=== PATIENT | female | born 1990 | race Caucasian/White ===

== ENCOUNTER → 2021-01-29 17:38 | Outpatient (BNVA) | payer SELFPAY | PROVIDERS: Visit Provider Nurse Practitioner Family | DX: R42 Dizziness and giddiness (principal); Z13.6 Encounter for screening for cardiovascular disorders; Z68.35 Body mass index [BMI] 35.0-35.9, adult | CPT/HCPCS: 80053; 80061; 81000; 82607; 83735; 84443; 85025 ==

== ENCOUNTER → 2021-02-20 10:15 | Outpatient (BNVA) | payer SELFPAY | PROVIDERS: Visit Provider Nurse Practitioner Family | DX: E53.8 Deficiency of other specified B group vitamins (principal); R42 Dizziness and giddiness | CPT/HCPCS: 80053; 82607; 82746; 85025 ==

== ENCOUNTER 2021-03-26 16:56 | Emergency (ER) | payer SELFPAY ==
[2021-03-26 17:15] VITALS: BP 135/90; PULSE 73; RESP 18; TEMP 36.7; O2SAT 99; BMI 34.3
--- NOTE | 2021-03-26 18:21 | XRR_ITS ---
PROCEDURE INFORMATION: Exam: XR Chest Exam date and time: 03/26/2021 6:33 PM Age: 30 years old Clinical indication: Other: Dizzy TECHNIQUE: Imaging protocol: XR of the chest. Views: 1 view. COMPARISON: No relevant prior studies available. FINDINGS: Lungs: Unremarkable. No consolidation. Pleural spaces: Unremarkable. No pleural effusion. No pneumothorax. Heart/Mediastinum: Unremarkable. No cardiomegaly. Bones/joints: Unremarkable. XR/XR chest 1V portable [id number] IMPRESSION: No acute findings.
--- NOTE | 2021-03-26 18:22 | ED_ITS ---
HPI - General Adult General: Chief complaint: General Medical Stated complaint: Chest Pain, Nausea, Dizziness Time Seen by Provider: 03/26/21 18:16 History of Present Illness: HPI narrative: Patient states her heart was racing earlier. Her blood pressure got to 120/90. She decided to come in after speaking to her PCP. She denies any chest pain shortness of breath. She says shethinks her right ankle has been swelled for a while does have some anxiety been going on lately. Medication she is taking does not seem be helping her. Does have some dizziness meclizine not helping. MD complaint: Anxiety hypertension. Onset (ago): month(s) Severity: mild Associated symptoms: Deny chest pain, dyspnea, headache(s), nausea, rash or vomiting Review of Systems Narrative: Says she thinks her right ankle has been swelled Const: Denies: fever(s), chills or body aches Eyes: Denies: change in vision or blurry vision ENMT: Denies: throat pain or nasal congestion Card: Denies: chest pain or dyspnea on exertion Resp: Denies: dyspnea, productive cough or non-productive cough GI: Denies: abdominal pain, nausea or vomiting Musc: Denies: extremity pain Skin/Breast: Denies: rash Neuro: Reports: dizziness (Sporadic); Denies: headache(s) Psych: Reports: anxiety; Denies: depression Adi/Lymph: Denies: easy bruising [facility] ED PFSH: Medical History No pertinent past medical history Surgical History No pertinent past surgical history Family History Grandmother Cancer Grandfather Cancer CAD (coronary artery disease) Denies family history of Diabetes Clotting disorder Chronic kidney disease (CKD) Bleeding disorder Hypertension Stroke Social History Smoking and tobacco status: current every day smoker cigarettes Packs smoked per day: 1.5 Years cigarettes smoked: 10 Second hand smoke exposure: Yes Alcohol intake: current Alcohol intake frequency: few times a week Alcohol type: beer and hard liquor Lives independently: No Household members: family Marital status: Single service: No Current occupational status: employed Current occupation: [employer] History of recent travel: No Current gender identity: Female Special elaine needs: No Agree to transfusion: Yes Physical Exam Const: COMMON NORMALS: no acute distress, average body habitus and patient oriented x3 HENMT: COMMON NORMALS: normocephalic HEAD & SCALP: normal to inspection and normocephalic FACE & SINUS: normal facial exam Eye: COMMON NORMALS: conjunctivae normal GENERAL EYE: appearance normal, both eyes and all related structures CONJUNCTIVA: Yes conjunctivae normal Neck/C-Spine: COMMON NORMALS: no JVD Chest: COMMONS NORMALS: normal inspection of the chest Resp: COMMON NORMALS: normal respiratory effort and clear to auscultation bilaterally AUSCULTATION: clear to auscultation bilaterally Cardio: COMMON NORMALS: no JVD, regular rate and regular rhythm RATE: regular rate RHYTHM: regular rhythm GI: COMMON NORMALS: Normal to inspection, nondistended, normoactive bowel sounds present Extremity: COMMON NORMALS: normal to inspection and full ROM Neuro: COMMON NORMALS: patient oriented x3 Skin: NARRATIVE SKIN EXAM: Right ankle with no swelling. She has a scar there the that has some old discoloration but left ankle right ankle appear the same good pulses. Course Vital Signs: Vital signs: Vital Signs Temperature 98.1 F 03/26/21 17:15 Pulse Rate 73 03/26/21 17:15 Respiratory Rate 18 03/26/21 17:15 Blood Pressure 135/90 03/26/21 17:15 Pulse Oximetry 99 03/26/21 17:15 MDM - General Adult MDM Narrative: Medical decision making narrative: EKG to show sinus arrhythmia with sinus rhythm ventricular rate 60 bpm WV interval 145 ms QRS durations 86,000,000 seconds QT is 457 patient is feeling much better. Propanolol and meclizine will be stopped we will try a trial of amlodipine and patient will fo llow back up primary care provider. Lab Data: Labs: Lab Results 03/26/21 03/26/21 03/26/21 Range/Units 19:30 19:30 19:30 WBC 16.5 H (4.0-10.0) 10^3/ uL RBC 4.38 (4.1-5.3) 10^6/u L Hgb 15.7 H (11.5-15.3) g/dL Hct 46.5 (37.0-47.0) % MCV 106.2 H (81-99) fL MCH 35.8 H (28.0-34.0) pg MCHC 33.8 (30.0-36.0) g/dL RDW 12.0 L (12.1-15.1) % Plt Count 322 (130-400) 10^3/c mm MPV 10.6 H (7.4-10.4) fL Neut % (Auto) 73.9 % Lymph % (Auto) 18.9 % [place] % (Auto) 5.7 % Eos % (Auto) 0.7 % Baso % (Auto) 0.4 % Neut # (Auto) 12.22 H (1.8-7.7) 10^3/u L Lymph # (Auto) 3.1 (0.8-4.8) 10^3/u L [place] # (Auto) 1.0 H (0.2-0.9) 10^3/u L Eos # (Auto) 0.1 (0.0-0.8) 10^3/u L Baso # (Auto) 0.1 (0.0-0.1) 10^3/u L Nucleated RBC % (a uto) 0 % Nucleated RBCs # 0.0 /100WBC Sodium 136 (136-145) mmol/L Potassium 4.0 (3.5-5.1) mmol/L Chloride 98 (98-107) mmol/L Carbon Dioxide 27 (22-29) mmol/L Anion Gap 15.0 (5-19) BUN 5 L (6-20) mg/dL Creatinine 0.8 (0.5-0.9) mg/dL GFR Calculation 84.8 L (90-130) mL/min Glucose 91 (65-115) mg/dL Calculated Osmolal ity 279 L (285-295) mOsm/k g Calcium 9.0 (8.5-10.5) mg/dL Total Bilirubin 0.6 (0.15-1.2) mg/dL AST 22 (0-32) U/L ALT 25 (0-33) U/L Alkaline Phosphata se 127 H (35-105) IU/L Troponin T Baselin e 6 (0-10) ng/L Total Protein 7.1 (6.6-8.7) g/dL Albumin 4.3 (3.5-5.2) g/dL Globulin 2.8 (1.3-4.6) g/dL EKG Data^: EKG 1: EKG interpretation date: 03/26/21 EKG interpretation time: 18:25 Computer generated interpretation: Chest X-Ray 03/26/21 18:21 IMPRESSION: No acute findings. Sinus rhythm possible Q wave V3 V4. 88 bpm. Discharge Plan Discharge Patient Disposition: Home Clinical Impression: HTN (hypertension) Qualifiers: Hypertension type: essential hypertension Qualified Code(s): I10 - Essential (primary) hypertension Condition: Stable Prescriptions: New amlodipine 5 mg tablet 5 mg PO DAILY Qty: 14 RF: 0 Discontinued meclizine 25 mg tablet See Rx Instructions PO TID PRN (Reason: dizziness) Qty: 30 RF: 0 propranolol 20 mg tablet 20 mg PO BID@0800,2000 RF: 0 No Action (DME) BD Eclipse Luer-Gary 3 mL 23 x 1 syringe See Rx Instructions .ROUTE .MEDSUPPLY Qty: 50 RF: 0 [place] 3 1,000 mg PO DAILY@0800 RF: 0 folic acid 0.8 mg capsule 0.8 mg PO DAILY@0800 RF: 0 Discharge Orders: Discharge ED (Routine); Ordered 03/26/21 Ordered By: Nick Longoria Referrals: Brandi Garcia FNP [Primary Care Provider] - Discharge Diet: Usual diet Discharge Activity: Increase activity as tolerated Patient Instructions: Chronic Hypertension (ED) Activity Restrictions/Additional Instructions: Follow-up with medical provider as directed. Take medications as prescribed. Return to the ER or your medical provider if condition worsens. Please read and understand discharge instructions. If any questions ask please. Coding Level of Care Code ED Horse Exerciser for Angelag Fwd Exam Comprehensive
[2021-03-26 19:41] LABS: Basophils # 0.1 10^3/uL (0.0-0.1); Basophils % 0.4 %; Eosinophils # 0.1 10^3/uL (0.0-0.8); Eosinophils % 0.7 %; Hematocrit 46.5 % (37.0-47.0); Hemoglobin 15.7 g/dL (11.5-15.3); Lymphocytes # 3.1 10^3/uL (0.8-4.8); Lymphocytes % 18.9 %; Mean Corpuscular HGB Conc 33.8 g/dL (30.0-36.0); Mean Corpuscular Hemoglobin 35.8 pg (28.0-34.0); Mean Corpuscular Volume 106.2 fL (81-99); Mean Platelet Volume 10.6 fL (7.4-10.4); Monocytes % 5.7 %; Neutrophils # 12.22 10^3/uL (1.8-7.7); Neutrophils % 73.9 %; Nucleated Red Blood Cells % 0 %; Platelet Count 322 10^3/cmm (130-400); Red Blood Count 4.38 10^6/uL (4.1-5.3); White Blood Count 16.5 10^3/uL (4.0-10.0)
[2021-03-26 19:58] LABS: Alanine Aminotransferase 25 U/L (0-33); Albumin Level 4.3 g/dL (3.5-5.2); Alkaline Phosphatase 127 IU/L (35-105); Aspartate Amino Transferase 22 U/L (0-32); Blood Urea Nitrogen 5 mg/dL (6-20); Carbon Dioxide 27 mmol/L (22-29); Chloride 98 mmol/L (98-107); Globulin 2.8 g/dL (1.3-4.6); Glomerular Filtration Rate 84.8 mL/min (90-130); Glucose 91 mg/dL (65-115); Osmolality Calculated 279 mOsm/kg (285-295); Sodium 136 mmol/L (136-145); Total Bilirubin 0.6 mg/dL (0.15-1.2); Total Protein 7.1 g/dL (6.6-8.7)
[2021-03-26 20:00] LABS: Troponin(5th) Baseline 6 ng/L (0-10)
--- NOTE | 2021-03-26 20:28 | ECG_ITS ---
[facility] Test Date: 2021-03-26 Pat Name: Coral Quinteros Department: Room: Gender: Female [employer] Cleaner: : 1990 Requested By: Nick Longoria Order Number: [id number] Deo MD: Arcenio Montes M.D. Measurements Intervals [place] Rate: 68 P: 57 [place]: 143 QRS: 42 QRSD: 93 T: 16 QT: 428 QTc: 457 Interpretive Statements SINUS RHYTHM POSSIBLE ANTERIOR MYOCARDIAL INFARCTION [30 ms Q WAVE IN V3/V4, OR R < 0.2 mV IN V4], OF INDETERMINATE AGE No previous ECG available for comparison Electronically Signed On 03-26-2021 18:53:42 CDT by Arcenio Montes M.D. [id number]
[2021-03-26 20:31] VITALS: BP 113/74; PULSE 72; RESP 18; O2SAT 96
== END 2021-03-26 20:32 | disposition home or self-care (01) ==
PROVIDERS: Emergency Provider Nurse Practitioner Family; PCP Nurse Practitioner Family
DX: I10 Essential (primary) hypertension (principal); F17.210 Nicotine dependence, cigarettes, uncomplicated
CPT/HCPCS: 71045; 80053; 84484; 85025; 93005; 99283

== ENCOUNTER → 2021-04-15 10:24 | Outpatient (BNVA) | payer SELFPAY | PROVIDERS: PCP Nurse Practitioner Family; Visit Provider Nurse Practitioner Family | DX: E53.8 Deficiency of other specified B group vitamins (principal) | CPT/HCPCS: 82607; 82746; 85025 ==

== ENCOUNTER 2021-05-01 17:56 | Emergency (ER) | payer SELFPAY ==
[2021-05-01 18:36] VITALS: BP 127/88; PULSE 97; RESP 16; TEMP 36.8; O2SAT 97; BMI 36.0
--- NOTE | 2021-05-01 21:03 | CTR_ITS ---
PROCEDURE INFORMATION: Exam: CT Head Without Contrast Exam date and time: 05/01/2021 9:05 PM Age: 30 years old Clinical indication: Pain; Patient HX: Headache with dizziness. TECHNIQUE: Imaging protocol: Computed tomography of the head without contrast. Radiation optimization: All CT scans at this facility use at least one of these dose optimization techniques: automated exposure control; mA and/or kV adjustment per patient size (includes targeted exams where dose is matched to clinical indication); or iterative reconstruction. COMPARISON: No relevant prior studies available. RADIATION DOSE METRICS: Total DLP (mGy-cm): 1740.44 FINDINGS: Brain: No acute infarct or hemorrhage. Cerebral ventricles: No ventriculomegaly. Paranasal sinuses: Paranasal sinuses are clear. No air-fluid level. Mastoid air cells: Visualized mastoid air cells are clear. Bones/joints: No calvarial or skull base fracture. Soft tissues: Unremarkable. CT/CT head wo con* [id number] IMPRESSION: 1. No calvarial or skull base fracture. 2. No acute infarct or hemorrhage. Radiation Dose CTDIVOL = (mGy): DLP = 1740.44 (mGy-cm)
--- NOTE | 2021-05-01 21:03 | XR_ITS ---
WS: [id number] Portable AP upright chest, 05/01/2021 Clinical Data: reduced breath sounds Comparison: Portable chest, 03/26/2021. Findings: No nodules, masses or effusions are seen. The heart is normal. The pulmonary vascularity is not increased. No pneumonia or pneumothorax is seen. XR/XR chest 1V portable [id number] Impression: Negative chest.
--- NOTE | 2021-05-01 21:04 | ECG_ITS ---
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
[2021-05-01 21:52] LABS: Add Urine Microscopic? NO; Charge for UA Resulting for Rev
[2021-05-01 21:55] LABS: Basophils # 0.1 10^3/uL (0.0-0.1); Basophils % 0.4 %; Eosinophils # 0.1 10^3/uL (0.0-0.8); Eosinophils % 0.7 %; Hematocrit 49.9 % (37.0-47.0); Hemoglobin 16.6 g/dL (11.5-15.3); Lymphocytes # 3.3 10^3/uL (0.8-4.8); Lymphocytes % 22.6 %; Mean Corpuscular HGB Conc 33.3 g/dL (30.0-36.0); Mean Corpuscular Hemoglobin 34.6 pg (28.0-34.0); Mean Platelet Volume 10.5 fL (7.4-10.4); Monocytes # 0.9 10^3/uL (0.2-0.9); Monocytes % 5.8 %; Neutrophils # 10.27 10^3/uL (1.8-7.7); Neutrophils % 69.9 %; Nucleated Red Blood Cells % 0 %; Platelet Count 314 10^3/cmm (130-400); White Blood Count 14.7 10^3/uL (4.0-10.0)
[2021-05-01 22:01] LABS: HCG Qualitative Urine. Negative (Negative)
[2021-05-01 22:07] LABS: Bilirubin Urine Neg (Negative); Blood Urine Neg (Negative); Glucose Urine UA Norm (Normal); Ketones Urine Negative (Negative); Leukocyte Esterase Urine Negative (Negative); Nitrate Urine Negative (Negative); Protein Urine Neg (Negative); Specific Gravity, Urine 1.005 (1.005-1.030); Urine Appearance Clear (CLEAR); Urine Color Yellow (Yellow); Urobilinogen Urine Norm (Negative); pH Urine 6.5 (5-7)
[2021-05-01] MEDS: acetaminophen 325 mg Tablet 650 MG PO (22:07)
[2021-05-01] MEDS: sodium chloride 0.9% 1,000 ML 999 ML IV (22:07)
[2021-05-01 22:09] LABS: Alanine Aminotransferase 24 U/L (0-33); Albumin Level 4.6 g/dL (3.5-5.2); Alkaline Phosphatase 121 IU/L (35-105); Anion Gap 17.7 (5-19); Aspartate Amino Transferase 20 U/L (0-32); Blood Urea Nitrogen 9 mg/dL (6-20); Calcium 8.9 mg/dL (8.5-10.5); Carbon Dioxide 22 mmol/L (22-29); Chloride 102 mmol/L (98-107); Globulin 3.1 g/dL (1.3-4.6); Glucose 89 mg/dL (65-115); Osmolality Calculated 284 mOsm/kg (285-295); Potassium 3.7 mmol/L (3.5-5.1); Sodium 138 mmol/L (136-145); Total Bilirubin 0.6 mg/dL (0.15-1.2); Total Protein 7.7 g/dL (6.6-8.7)
[2021-05-01 22:20] LABS: D Dimer 0.71 ug/mIFEU (0-0.59)
--- NOTE | 2021-05-01 23:00 | CTR_ITS ---
PROCEDURE INFORMATION: Exam: CTA Chest With Contrast Exam date and time: 05/01/2021 11:01 PM Age: 30 years old Clinical indication: Sternal or substernal pain; Additional info: Chest pain. Elevated d dimer TECHNIQUE: Imaging protocol: Computed tomographic angiography of the chest with contrast. 3D rendering (Not supervised by radiologist): MIP and/or 3D reconstructed images were created by the technologist. Radiation optimization: All CT scans at this facility use at least one of these dose optimization techniques: automated exposure control; mA and/or kV adjustment per patient size (includes targeted exams where dose is matched to clinical indication); or iterative reconstruction. Contrast material: OMNI 350; Contrast volume: 63 ml; Contrast route: INTRAVENOUS (IV); COMPARISON: CR XR chest 1V portable [id number] 05/01/2021 9:09 PM RADIATION DOSE METRICS: Total DLP (mGy-cm): 894.32 FINDINGS: Pulmonary arteries: No pulmonary embolism. Aorta: No aortic dissection. Lungs: Unremarkable. No consolidation. No masses. Pleural spaces: Unremarkable. No pneumothorax. No pleural effusion. Heart: Unremarkable. No cardiomegaly. No pericardial effusion. Lymph nodes: Unremarkable. No enlarged lymph nodes. Bones/joints: Unremarkable. No acute fracture. Soft tissues: Unremarkable. CT/CT angio chest PE protcl [id number] IMPRESSION: 1. No pulmonary embolism. 2. No cause for acute pain is identified. Radiation Dose CTDIVOL = (mGy): DLP = 894.32 (mGy-cm)
[2021-05-01] MEDS: iohexol 350 mg/mL 100 mL Btl IV (23:24)
[2021-05-01 23:40] VITALS: BP 122/75; PULSE 84; RESP 16; O2SAT 97
--- NOTE | 2021-05-01 23:47 | ED_ITS ---
HPI - General Adult General: Chief complaint: General Medical Stated complaint: multiple complaints Time Seen by Provider: 05/01/21 20:45 History of Present Illness: HPI narrative: The patient is a 30-year-old female with past medical history anxiety who comes to the ER complaining of dizziness, tingling in her feet, palpitations, chest pain. She says she has been seen by multiple doctors for this in the past and has gotten the run around. She has not seen a neurologist. She has not set up with a mental health worker yet. She is taking buspirone for her anxiety and she does not attribute her anxiety to any of her symptoms. She says she does not feel that anxious in the ER I noted that her pulse was 97 and she is telling me she is calm but she is likely anxious. She reluctantly agrees she may be a little anxious. She is worried about the circulation in her lower extremities as well as they are slightly cool to the touch. They have brisk cap refill in all the toes and 2+ dorsalis pedis pulse. I recommended she follow that up with her primary care physician within a week. She understands and will do so. Location: lower extremity Severity: mild Quality: other (tingling) Pain Consistency: constant Relieving factors: none Exacerbating factors: none Associated symptoms: Reports chest pain, headache(s) and palpitations; Deny dyspnea or rash Review of Systems General: Reports: 10 or more systems reviewed and unremarkable except in HPI and below Const: Denies: fatigue Eyes: Denies: change in vision, blurry vision or eye redness ENMT: Denies: throat pain, swelling of lips/tongue, ear or mastoid pain or nasal congestion Card: Reports: chest pain and palpitations Resp: Denies: dyspnea, productive cough or non-productive cough GI: Denies: abdominal pain, diarrhea or GI cramping : Denies: flank pain, difficulty voiding, urinary frequency or urinary urgency Musc: Denies: neck pain, back pain, extremity pain, joint pain, joint redness, limited range of motion or muscle weakness Skin/Breast: Denies: rash, pruritus, erythema, skin pain or skin tenderness Neuro: Reports: headache(s) Psych: Denies: anxiety or depression Endo: Denies: polyuria All/Imm: Denies: urticaria, throat swelling or tongue swelling PFSH ED PFSH: Medical History No pertinent past medical history Surgical History No pertinent past surgical history Family History Grandmother Cancer Grandfather Cancer CAD (coronary artery disease) Denies family history of Diabetes Clotting disorder Chronic kidney disease (CKD) Bleeding disorder Hypertension Stroke Social History (Updated 05/01/21 @ 18:41 by Jesus Manuel Beyer RN) Smoking and tobacco status: current every day smoker cigarettes Packs smoked per day: 1 Years cigarettes smoked: 10 Second hand smoke exposure: Yes Alcohol intake: current Alcohol intake frequency: few times a month Alcohol type: beer and hard liquor Substance/Drug Use: never Lives independently: No Household members: family Marital status: Single service: No Current occupational status: employed Current occupation: [employer] History of recent travel: No Current gender identity: Female Special elaine needs: No Agree to transfusion: Yes Female Reproductive History: Date of last menstrual period: 04/10/21 Physical Exam Const: COMMON NORMALS: no acute distress, average body habitus, patient oriented x3, no limitations, healthy appearing, alert and well nourished GE NERAL APPEARANCE: cooperative, comfortable, well kempt, well developed and anxious ORIENTATION/CONSCIOUSNESS: Yes awake, Yes oriented to person, Yes oriented to place and Yes oriented to time HENMT: COMMON NORMALS: normocephalic, external ears normal and Normal external nose present HEAD & SCALP: normal to inspection and normocephalic NOSE: Normal external nose present EXTERNAL EAR: Yes external ears normal MOUTH: Normal oral and palatal mucosa present THROAT: posterior oropharynx normal Eye: COMMON NORMALS: Equal, round and reactive pupils present and EOMs intact bilaterally GENERAL EYE: appearance normal, both eyes and all related structures PUPIL: Yes Equal, round and reactive pupils present Neck/C-Spine: COMMON NORMALS: full ROM, no lymphadenopathy, no meningeal signs and no JVD GENERAL: Yes normal visual inspection Lymph: LYMPHATIC: no lymphadenopathy noted Chest: COMMONS NORMALS: normal inspection of the chest and normal palpation of entire chest wall Resp: COMMON NORMALS: normal respiratory effort, No retractions, No use of accessory muscles, clear to auscultation bilaterally and percussion normal EFFORT & INSPECTION: Yes able to speak in complete sentences AUSCULTATION: clear to auscultation bilaterally PERCUSSION: percussion normal Cardio: COMMON NORMALS: no JVD, regular rate, regular rhythm, S1 normal heart sound present, S2 normal heart sound present and Peripheral pulses 2+ throughout RATE: regular rate RHYTHM: regular rhythm HEART SOUNDS: S1 normal heart sound present and S2 normal heart sound present PERIPHERAL PULSES: Peripheral pulses 2+ throughout GI: COMMON NORMALS: Normal to inspection, nondistended, normoactive bowel sounds present, Soft to palpation, non-tender and no masses INSPECTION: Yes normal to inspection PALPATION: Yes Soft to palpation : COMMON NORMALS: Yes no CVA tenderness BLADDER/KIDNEY EXAM: Yes no CVA tenderness Back/Pelvis: COMMON NORMALS: no CVA tenderness, thoracic and lumbar spine normal to inspection, no thoracic nor lumbar tenderness and thoraco-lumbar ROM normal Extremity: COMMON NORMALS: normal to inspection, full ROM, capillary refill normal, no joint enlargement and no pedal edema GENERAL: Yes normal exam except as noted Neuro: COMMON NORMALS: patient oriented x3, CN's II-XII intact bilaterally, moves all extremities, no focal motor deficits, no sensory deficits noted and gait normal SENSORIUM/ORIENTATION: Yes alert, Yes oriented to person, Yes oriented to place and Yes oriented to time MENINGEAL SIGNS: Yes no meningeal signs Psych: COMMON NORMALS: mental status grossly normal, Normal thought process present, cooperative, normal affect and speech normal APPEARANCE: Yes well kempt ATTITUDE: Yes calm SPEECH: Yes normal speech MOOD & AFFECT: Yes anxious THOUGHT PROCESS: Normal thought process present Skin: COMMON NORMALS: no rashes or lesions noted GENERAL SKIN EXAM: no rashes or lesions noted Course Vital Signs: Vital signs: Vital Signs Temperature 98.2 F 05/01/21 18:36 Pulse Rate 97 05/01/21 18:36 Respiratory Rate 16 05/01/21 18:36 Blood Pressure 127/88 05/01/21 18:36 Pulse Oximetry 97 05/01/21 18:36 MDM - General Adult MDM Narrative: Medical decision making narrative: Patient comes to the ER with multiple vague complaints of dizziness, headache, palpitations, tingling in her feet. She says she has seen multiple doctors in the past and gotten the run around . Work-up today is mostly normal except elevated white count 14.7. Placed a case management referral to help her get in with neurology, primary care, and set up with psychiatry as well. Symptoms are possibly attributable to her anxiety though other causes must be ruled out. She takes buspirone and I recommended she continue to take that and follow-up with her primary care physician within a week as well as the other consultants. ER with worsening symptoms at any time Lab Data: Labs: Lab Results 05/01/21 05/01/21 05/01/21 Range/Units 20:59 20:59 21:30 WBC 14.7 H (4.0-10.0) 10^3/ uL RBC 4.80 (4.1-5.3) 10^6/u L Hgb 16.6 H (11.5-15.3) g/dL Hct 49.9 H (37.0-47.0) % MCV 104.0 H (81-99) fL MCH 34.6 H (28.0-34.0) pg MCHC 33.3 (30.0-36.0) g/dL RDW 12.0 L (12.1-15.1) % Plt Count 314 (130-400) 10^3/c mm MPV 10.5 H (7.4-10.4) fL Neut % (Auto) 69.9 % Lymph % (Auto) 22.6 % [place] % (Auto) 5.8 % Eos % (Auto) 0.7 % Baso % (Auto) 0.4 % Neut # (Auto) 10.27 H (1.8-7.7) 10^3/u L Lymph # (Auto) 3.3 (0.8-4.8) 10^3/u L [place] # (Auto) 0.9 (0.2-0.9) 10^3/u L Eos # (Auto) 0.1 (0.0-0.8) 10^3/u L Baso # (Auto) 0.1 (0.0-0.1) 10^3/u L Nucleated RBC % (a uto) 0 % Nucleated RBCs # 0.0 /100WBC D-Dimer (0-0.59) ug/mIFE U Sodium (136-145) mmol/L Potassium (3.5-5.1) mmol/L Chloride (98-107) mmol/L Carbon Dioxide (22-29) mmol/L Anion Gap (5-19) BUN (6-20) mg/dL Creatinine (0.5-0.9) mg/dL GFR Calculation (90-130) mL/min Glucose (65-115) mg/dL Calculated Osmolal ity (285-295) mOsm/k g Calcium (8.5-10.5) mg/dL Total Bilirubin (0.15-1.2) mg/dL AST (0-32) U/L ALT (0-33) U/L Alkaline Phosphata se (35-105) IU/L Total Protein (6.6-8.7) g/dL Albumin (3.5-5.2) g/dL Globulin (1.3-4.6) g/dL HCG, Qual Negative (Negative) Urine Color Yellow (Yellow) Urine Appearance Clear (CLEAR) Urine pH 6.5 (5-7) Ur Specific Gravit y 1.005 (1.005-1.030) Urine Protein Neg (Negative) Urine Glucose (UA) Norm (Normal) Urine Ketones Negative (Negative) Urine Blood Neg (Negative) Urine Nitrate Negative (Negative) Urine Bilirubin Neg (Negative) Urine Urobilinogen Norm (Negative) mg/dL Ur Leukocyte Damaris ase Negative (Negative) 05/01/21 05/01/21 Range/Units 21:30 21:30 WBC (4.0-10.0) 10^3/ uL RBC (4.1-5.3) 10^6/u L Hgb (11.5-15.3) g/dL Hct (37.0-47.0) % MCV (81-99) fL MCH (28.0-34.0) pg MCHC (30.0-36.0) g/dL RDW (12.1-15.1) % Plt Count (130-400) 10^3/c mm MPV (7.4-10.4) fL Neut % (Auto) % Lymph % (Auto) % [place] % (Auto) % Eos % (Auto) % Baso % (Auto) % Neut # (Auto) (1.8-7.7) 10^3/u L Lymph # (Auto) (0.8-4.8) 10^3/u L [place] # (Auto) (0.2-0.9) 10^3/u L Eos # (Auto) (0.0-0.8) 10^3/u L Baso # (Auto) (0.0-0.1) 10^3/u L Nucleated RBC % (a uto) % Nucleated RBCs # /100WBC D-Dimer 0.71 H (0-0.59) ug/mIFE U Sodium 138 (136-145) mmol/L Potassium 3.7 (3.5-5.1) mmol/L Chloride 102 (98-107) mmol/L Carbon Dioxide 22 (22-29) mmol/L Anion Gap 17.7 (5-19) BUN 9 (6-20) mg/dL Creatinine 0.9 (0.5-0.9) mg/dL GFR Calculation 74.0 L (90-130) mL/min Glucose 89 (65-115) mg/dL Calculated Osmolal ity 284 L (285-295) mOsm/k g Calcium 8.9 (8.5-10.5) mg/dL Total Bilirubin 0.6 (0.15-1.2) mg/dL AST 20 (0-32) U/L ALT 24 (0-33) U/L Alkaline Phosphata se 121 H (35-105) IU/L Total Protein 7.7 (6.6-8.7) g/dL Albumin 4.6 (3.5-5.2) g/dL Globulin 3.1 (1.3-4.6) g/dL HCG, Qual (Negative) Urine Color (Yellow) Urine Appearance (CLEAR) Urine pH (5-7) Ur Specific Gravit y (1.005-1.030) Urine Protein (Negative) Urine Glucose (UA) (Normal) Urine Ketones (Negative) Urine Blood (Negative) Urine Nitrate (Negative) Urine Bilirubin (Negative) Urine Urobilinogen (Negative) mg/dL Ur Leukocyte Damaris ase (Negative) Discharge Plan Discharge Patient Disposition: Home Clinical Impression: Tingling, Heart palpitations, Anxiety Condition: Stable Prescriptions: No Action (DME) BD Eclipse Luer-Gary 3 mL 23 x 1 syringe See Rx Instructions .ROUTE .MEDSUPPLY Qty: 50 RF: 0 buspirone 10 mg tablet 10 mg PO BID Qty: 60 RF: 0 [place] 3 1,000 mg PO DAILY@0800 RF: 0 folic acid 0.8 mg capsule 0.8 mg PO DAILY@0800 RF: 0 Vitamin B-12 1 tab PO DAILY RF: 0 Discharge Orders: Discharge ED (Routine); Ordered 05/01/21 Ordered By: Bob Walker Referrals: Brandi Garcia FNP [Primary Care Provider] - Discharge Diet: Advance as tolerated Discharge Activity: Resume usual activity Patient Instructions: Palpitations (ED), Paresthesia (ED), Opioid Safety Activity Restrictions/Additional Instructions: The cause of your symptoms are unclear however all the tests we have ran today are mostly normal except for a mildly elevated white count of 14.7. The sympto ms are possibly attributable to your anxiety though you must see your primary care physician and also a psychiatrist and neurologist for further testing. I have placed a case management referral to help you get an appointment with a neurologist and they should be calling you tomorrow to help set this up. You may return to the ER at anytime with worsening symptoms otherwise call your primary care physician tomorrow and get an appointment within a week. Coding Level of Care Code ED Carbide Tool Maker for Jon Hartley
[2021-05-02 00:36] VITALS: BP 122/75; PULSE 84; RESP 16; O2SAT 97
--- NOTE | 2021-05-02 10:26 | DCPLANNER ---
craft manager had message to schedule a follow up appointment for patient with neurology for foot paresthesias. craft manager emailed patients information to Isadora at Dr. Nugent office. Patients information will be printed and reviewed. Clinic will call patient with appointment information. Clinic will call patient with appointment information. craft manager also had message to schedule a follow up appointment for patient with psychiatry for anxiety at [facility]. craft manager can not schedule follow up appointments for patients at [facility] that does not currently have services at [facility]. Patient does not currently have services at [facility]. craft manager spoke with patient, informing patient that she would have to fill out the new patient paperwork, and turn that in. After that has been turned in then the clinic will call patient with appointment information for an initial assessment. craft manager also had message to schedule a follow up appointment for patient with her primary care physician. Patient stated that she would schedule the follow up appointment for patient with her primary care physician.
--- NOTE | 2021-05-08 07:37 | DCPLANNER ---
Patient has a follow up appointment scheduled for Wednesday, June 09, 2021 at 1:[address] Stafford. Clinic will call patient with appointment information.
--- NOTE | 2021-06-26 08:07 | DCPLANNER ---
Patient had a follow up appointment scheduled with Dr. Stafford - appointment was cancelled.
== END 2021-05-02 00:30 | disposition home or self-care (01) ==
PROVIDERS: Emergency Provider Family Medicine; PCP Nurse Practitioner Family
DX: R20.2 Paresthesia of skin (principal); R00.2 Palpitations; F41.9 Anxiety disorder, unspecified; F17.210 Nicotine dependence, cigarettes, uncomplicated
CPT/HCPCS: 70450; 71045; 71275; 80053; 81003; 81025; 85025; 85378; 93005; 96360; 99284; J7030; Q9967

== ENCOUNTER → 2021-05-07 10:44 | Outpatient (BNVA) | payer SELFPAY | PROVIDERS: PCP Nurse Practitioner Family; Visit Provider Nurse Practitioner Family | DX: F41.1 Generalized anxiety disorder (principal); R42 Dizziness and giddiness; D72.829 Elevated white blood cell count, unspecified; Z68.36 Body mass index [BMI] 36.0-36.9, adult; F17.210 Nicotine dependence, cigarettes, uncomplicated | CPT/HCPCS: 80500; 85025 ==

== ENCOUNTER 2021-05-20 06:00 | Outpatient (RCR) | payer SELFPAY | END 2021-05-28 23:59 | disposition home or self-care (01) | LOC: TPT 06:00 | PROVIDERS: PCP Nurse Practitioner Family; Referring Provider Nurse Practitioner Family; Visit Provider Nurse Practitioner Family | DX: R42 Dizziness and giddiness (principal) | CPT/HCPCS: 95992; 97162 ==

== ENCOUNTER 2021-05-29 06:00 | Outpatient (RCR) | payer SELFPAY | END 2021-06-28 23:59 | disposition home or self-care (01) | LOC: TPT 06:00 | PROVIDERS: PCP Nurse Practitioner Family; Referring Provider Nurse Practitioner Family; Visit Provider Nurse Practitioner Family | DX: R42 Dizziness and giddiness (principal) | CPT/HCPCS: 95992; 97164 ==

== ENCOUNTER → 2021-06-05 15:39 | Outpatient (BNVA) | payer SELFPAY | PROVIDERS: PCP Nurse Practitioner Family; Referring Provider Nurse Practitioner Family; Visit Provider Podiatrist Foot & Ankle Surgery | DX: M79.671 Pain in right foot (principal) | CPT/HCPCS: 73630 ==

== ENCOUNTER → 2021-09-24 15:00 | Outpatient (BNVA) | payer OTHER, SELFPAY | PROVIDERS: PCP Nurse Practitioner Family; Visit Provider Nurse Practitioner Family | DX: Z20.822 Contact with and (suspected) exposure to COVID-19 (principal); J32.0 Chronic maxillary sinusitis | CPT/HCPCS: 87635 ==

== ENCOUNTER → 2021-11-10 15:54 | Outpatient (BNVA) | payer SELFPAY | PROVIDERS: PCP Nurse Practitioner Family; Visit Provider Nurse Practitioner Family | DX: E78.5 Hyperlipidemia, unspecified (principal); E53.8 Deficiency of other specified B group vitamins; J32.0 Chronic maxillary sinusitis; R79.89 Other specified abnormal findings of blood chemistry; D72.829 Elevated white blood cell count, unspecified | CPT/HCPCS: 80053; 80061; 82306; 82607; 85025 ==

== ENCOUNTER → 2022-10-26 17:52 | Outpatient (BNVA) | payer SELFPAY | PROVIDERS: PCP Nurse Practitioner Family; Visit Provider Nurse Practitioner Family | DX: E78.5 Hyperlipidemia, unspecified (principal); E53.8 Deficiency of other specified B group vitamins | CPT/HCPCS: 80053; 80061; 82306; 82607; 83735; 84443; 85025 ==

== ENCOUNTER 2023-08-25 15:48 | Emergency (ER) | payer OTHER, SELFPAY ==
[2023-08-25 16:14] VITALS: BP 151/95; PULSE 99; RESP 18; TEMP 36.8; O2SAT 97; BMI 36.0
[2023-08-25 17:10] LABS: Basophils # 0.1 10^3/uL (0.0-0.1); Basophils % 0.3 %; Eosinophils # 0.5 10^3/uL (0.0-0.8); Hematocrit 44.3 % (36-47); Lymphocytes # 2.6 10^3/uL (0.8-4.8); Lymphocytes % 16.3 %; Mean Corpuscular HGB Conc 33.4 g/dL (30-55); Mean Corpuscular Hemoglobin 33.1 pg (27-33); Mean Corpuscular Volume 99.1 fl (85-98); Mean Platelet Volume 9.5 fL (7.4-10.4); Monocytes # 0.9 10^3/uL (0.2-0.9); Monocytes % 5.7 %; Neutrophils % 74.3 %; Nucleated Red Blood Cells % 0 %; Platelet Count 363 10^3/cmm (157-399); Red Blood Count 4.47 10^6/uL (3.85-5.65); Red Cell Distribution Width 12.3 % (12.1-15.1); White Blood Count 15.74 10^3/uL (3.29-11.43)
[2023-08-25 17:25] LABS: HCG, Serum Qual Negative (Negative)
[2023-08-25 17:31] LABS: Alanine Aminotransferase 20 U/L (0-33); Albumin Level 4.4 g/dL (3.5-5.2); Alkaline Phosphatase 122 U/L (35-105); Anion Gap 13.8 (5-19); Aspartate Amino Transferase 15 U/L (0-32); Blood Urea Nitrogen 12 mg/dL (6-20); Calcium 9.4 mg/dL (8.5-10.5); Carbon Dioxide 27 mmol/L (22-29); Chloride 102 mmol/L (98-107); Glomerular Filtration Rate 83.1 mL/min (90-130); Glucose 107 mg/dL (65-115); Osmolality Calculated 288 mOsm/kg (285-295); Potassium 3.8 mmol/L (3.5-5.1); Sodium 139 mmol/L (136-145); Total Bilirubin 0.2 mg/dL (0.15-1.2); Total Protein 7.4 g/dL (6.6-8.7)
--- NOTE | 2023-08-25 18:34 | CTR_ITS ---
PROCEDURE INFORMATION: Exam: CT Abdomen And Pelvis With Contrast Exam date and time: 08/25/2023 7:00 PM Age: 33 years old Clinical indication: Abdominal pain; Localized; Lower; Additional info: Abd pain TECHNIQUE: Imaging protocol: Computed tomography of the abdomen and pelvis with contrast. Axial, coronal and sagittal reformatted images were created and reviewed. Radiation optimization: All CT scans at this facility use at least one of these dose optimization techniques: automated exposure control; mA and/or kV adjustment per patient size (includes targeted exams where dose is matched to clinical indication); or iterative reconstruction. Contrast material: OMNI 350; Contrast volume: 100 ml; Contrast route: INTRAVENOUS (IV); REPORTING DATA: Count of CT and Cardiac NM exams in prior 12 months: This patient has received 0 known CTs and 0 known cardiac nuclear medicine studies in the 12 months prior to the current study. COMPARISON: CT angio chest PE protcl [id number] 05/01/2021 11:18 PM RADIATION DOSE METRICS: Total DLP (mGy-cm): 976 FINDINGS: Lungs: Linear stranding and groundglass at the lung bases, likely due to atelectasis. Liver: Unremarkable. Gallbladder and bile ducts: No radiodense gallstones. No biliary ductal dilatation. Pancreas: Unremarkable. Spleen: Unremarkable. Adrenal glands: Normal. No mass. Kidneys and ureters: No mass. No radiodense calculi. No hydronephrosis. Stomach and bowel: No bowel wall thickening. No obstruction. No pneumatosis. Appendix: Normal. Intraperitoneal space: No free fluid. No organized fluid collection. No free air. Vasculature: Unremarkable. No aneurysm. Lymph nodes: Small mesenteric lymph nodes, nonspecific in appearance. No pathologically enlarged lymph nodes. Urinary bladder: Unremarkable as visualized. Reproductive: Somewhat lobular, heterogeneous uterus, likely due to fibroids. Bones/joints: No acute osseous abnormality. Mild degenerative changes. Soft tissues: Small, fat containing umbilical hernia. CT/CT abdomen pelvis w con* [id number]: 1. No CT evidence of acute intra-abdominal or pelvic pathology. 2. Additional findings, as above.
--- NOTE | 2023-08-25 18:35 | ED_ITS ---
HPI - General: Chief complaint: Vaginal Bleeding Stated complaint: vaginal pain Time Seen by Provider: 08/25/23 18:28 Source: patient Mode of arrival: ambulatory Limitations: no limitations History of Present Illness: 33-year-old female states she been having some lower abdominal pain since S aturday she states been sharp in nature. States she has been on her menstruation she states earlier her menstruation was heavier than normal but states that it is back to normal today she is having no heavy bleeding today she denies any pelvic pain or vaginal discharge states her pain is in her lower abdomen she has also had some constipation she denies any fever denies any vomiting. Associated symptoms: Reports abdominal pain; Deny dysuria, headache(s), nausea or vomiting Review of Systems Const: Denies: fever(s), chills, body aches or change in appetite ENMT: Denies: throat pain or dental pain Card: Denies: chest pain Resp: Denies: dyspnea GI: Reports: abdominal pain and constipation; Denies: nausea, vomiting or diarrhea : Reports: vaginal bleeding; Denies: dysuria Musc: Denies: neck pain or back pain Skin/Breast: Denies: rash Neuro: Denies: headache(s) PFSH ED PFSH: Medical History No pertinent past medical history Surgical History No pertinent past surgical history Family History Grandmother Cancer Grandfather Cancer CAD (coronary artery disease) Denies family history of Diabetes Clotting disorder Chronic kidney disease (CKD) Bleeding disorder Hypertension Stroke Social History Smoking and tobacco status: current every day smoker cigarettes Packs smoked per day: 1 Years cigarettes smoked: 10 Second hand smoke exposure: Yes Alcohol intake: current Alcohol intake frequency: few times a month Alcohol type: beer and hard liquor Substance/Drug Use: never Caregiver/support person: Yes (Mother) Lives independently: No Household members: family Marital status: Single service: No Current occupational status: employed Current occupation: [employer] Current gender identity: Female Special elaine needs: No Agree to transfusion: Yes Physical Exam Const: COMMON NORMALS: no acute distress, patient oriented x3 and healthy appearing HENMT: COMMON NORMALS: normocephalic and atraumatic HEAD & SCALP: normocephalic and atraumatic Eye: COMMON NORMALS: Equal, round and reactive pupils present and EOMs intact bilaterally PUPIL: Yes Equal, round and reactive pupils present Neck/C-Spine: COMMON NORMALS: full ROM and supple Chest: COMMONS NORMALS: normal inspection of the chest and normal palpation of entire chest wall Resp: COMMON NORMALS: normal respiratory effort, No retractions, No use of accessory muscles and clear to auscultation bilaterally AUSCULTATION: clear to auscultation bilaterally Cardio: COMMON NORMALS: regular rate, regular rhythm and No murmurs present (Cardio) RATE: regular rate RHYTHM: regular rhythm GI: COMMON NORMALS: Normal to inspection, nondistended, normoactive bowel sounds present, non-tender and no masses OTHER: Mild lower abdominal tenderness Extremity: COMMON NORMALS: normal to inspection and full ROM Neuro: COMMON NORMALS: patient oriented x3, moves all extremities and no focal motor deficits Psych: COMMON NORMALS: mental status grossly normal, Normal thought process present and cooperative THOUGHT PROCESS: Normal thought process present Skin: COMMON NORMALS: no rashes or lesions noted and no wounds GENERAL SKIN EXAM: no rashes or lesions noted Course Vital Signs: Vital signs: Vital Signs Temperature 98.2 F 08/25/23 16:14 Pulse Rate 99 08/25/23 16:14 Respiratory Rate 16 08/25/23 19:13 Blood Pressure 151/95 08/25/23 16:14 Pulse Oximetry 97 08/25/23 16:14 Oxygen Delivery Me thod Room Air 08/25/23 16:14 MDM - OB/Uterine Contractions Medical Decision Making Patient presents with vaginal bleeding along with some lower abdominal cramping she has no signs of PID she denies any discharge she said no fever CT does show some possibility for uterine fibroids she had some increased vaginal bleeding is on her menstruation currently. Her pain here is improved exam at discharge is benign we will start her on pain meds we will get her follow-up with OB. Lab Data 08/25/23 17:03 08/25/23 17:03 Radiology Impressions Abdomen/Pelvis CT 08/25/23 18:[address]: [address] evidence of acute intra-abdominal or pelvic pathology. 2. Additional findings, as above. Laboratory Results WBC 15.74 10^3/uL (3.29-11.43) H 08/25/23 17:03 RBC 4.47 10^6/uL (3.85-5.65) 08/25/23 17:03 Hgb 14.80 g/dL (11.27-16.99) 08/25/23 17:03 Hct 44.3 % (36-47) 08/25/23 17:03 MCV 99.1 fl (85-98) H 08/25/23 17:03 MCH 33.1 pg (27-33) H 08/25/23 17:03 MCHC 33.4 g/dL (30-55) 08/25/23 17:03 RDW 12.3 % (12.1-15.1) 08/25/23 17:03 Plt Count 363 10^3/cmm (157-399) 08/25/23 17:03 MPV 9.5 fL (7.4-10.4) 08/25/23 17:03 Neut % (Auto) 74.3 % 08/25/23 17:03 Lymph % (Auto) 16.3 % 08/25/23 17:03 [place] % (Auto) 5.7 % 08/25/23 17:03 Eos % (Auto) 3.0 % 08/25/23 17:03 Baso % (Auto) 0.3 % 08/25/23 17:03 Neut # (Auto) 11.70 10^3/uL (1.8-7.7) H 08/25/23 17:03 Lymph # (Auto) 2.6 10^3/uL (0.8-4.8) 08/25/23 17:03 [place] # (Auto) 0.9 10^3/uL (0.2-0.9) 08/25/23 17:03 Eos # (Auto) 0.5 10^3/uL (0.0-0.8) 08/25/23 17:03 Baso # (Auto) 0.1 10^3/uL (0.0-0.1) 08/25/23 17:03 Nucleated RBC % (auto) 0 % 08/25/23 17:03 Nucleated RBCs # 0.0 /100WBC 08/25/23 17:03 Sodium 139 mmol/L (136-145) 08/25/23 17:03 Potassium 3.8 mmol/L (3.5-5.1) 08/25/23 17:03 Chloride 102 mmol/L (98-107) 08/25/23 17:03 Carbon Dioxide 27 mmol/L (22-29) 08/25/23 17:03 Anion Gap 13.8 (5-19) 08/25/23 17:03 BUN 12 mg/dL (6-20) 08/25/23 17:03 Creatinine 0.8 mg/dL (0.5-0.9) 08/25/23 17:03 GFR Calculation 83.1 mL/min (90-130) L 08/25/23 17:03 Glucose 107 mg/dL (65-115) 08/25/23 17:03 Calculated Osmolality 288 mOsm/kg (285-295) 08/25/23 17:03 Calcium 9.4 mg/dL (8.5-10.5) 08/25/23 17:03 Total Bilirubin 0.2 mg/dL (0.15-1.2) 08/25/23 17:03 AST 15 U/L (0-32) 08/25/23 17:03 ALT 20 U/L (0-33) 08/25/23 17:03 Alkaline Phosphatase 122 U/L (35-105) H 08/25/23 17:03 Total Protein 7.4 g/dL (6.6-8.7) 08/25/23 17:03 Albumin 4.4 g/dL (3.5-5.2) 08/25/23 17:03 Globulin 3.0 g/dL (1.3-4.6) 08/25/23 17:03 HCG, Qual Negative (Negative) 08/25/23 17:03 Urine Color Yellow (Yellow) 08/25/23 18:44 Urine Appearance Clear (CLEAR) 08/25/23 18:44 Urine pH 6 (5-7) 08/25/23 18:44 Ur Specific [place] 1.015 (1.005-1.030) 08/25/23 18:44 Urine Protein Neg (Negative) 08/25/23 18:44 Urine Glucose (UA) Norm (Normal) 08/25/23 18:44 Urine Ketones Negative (Negative) 08/25/23 18:44 Urine Blood Neg (Negative) 08/25/23 18:44 Urine Nitrate Negative (Negative) 08/25/23 18:44 Urine Bilirubin Neg (Negative) 08/25/23 18:44 Urine Urobilinogen Norm mg/dL (Negative) 08/25/23 18:44 Ur Leukocyte Esterase Negative (Negative) 08/25/23 18:44 No radiology studies performed this visit Discharge Plan Discharge Patient Disposition: Home Clinical Impression: Fibroid, uterine, Abdominal pain Condition: Stable Prescriptions: New hydrocodone-acetaminophen 5-325 mg tablet 1 tab PO Q6H PRN (Reason: pain) Qty: 14 0RF ondansetron 4 mg tablet,disintegrating 4 mg PO Q6H PRN (Reason: nausea and vomiting) Qty: 14 0RF No Action sulfamethoxazole-trimethoprim [Bactrim DS] 800-160 mg tablet 1 tab PO BID 10 Days Qty: 20 0RF mupirocin 2 % ointment 1 applic topical BID 10 Days Qty: 22 0RF duloxetine 20 mg capsule,delayed release(DR/EC) 20 mg PO DAILY Qty: 30 0RF cyanocobalamin (vitamin B-12) 1,000 mcg/mL solution 1,000 mcg IM .Q MO 30 Days Qty: 4 1RF Discharge Orders: Discharge ED (Routine); Ordered 08/25/23 Ordered By: Wanda Foley Referrals: Jimy Davenport MD [Physician] - 1-3 days Brandi Garcia FNP [Primary Care Provider] - 1-3 days Discharge Diet: Advance as tolerated Discharge Activity: Resume usual activity Patient Instructions: Uterine Fibroids (ED), Abdominal Pain (ED), Opioid Safety Coding Level of Care Code ED [employer] for Angelag Naeem
[2023-08-25 18:55] LABS: Add Urine Microscopic? NO; Charge for UA Resulting for Rev
[2023-08-25 18:58] LABS: Bilirubin Urine Neg (Negative); Blood Urine Neg (Negative); Glucose Urine UA Norm (Normal); Ketones Urine Negative (Negative); Leukocyte Esterase Urine Negative (Negative); Nitrate Urine Negative (Negative); Protein Urine Neg (Negative); Specific Gravity, Urine 1.015 (1.005-1.030); Urine Appearance Clear (CLEAR); Urine Color Yellow (Yellow); Urobilinogen Urine Norm (Negative); pH Urine 6 (5-7)
[2023-08-25] MEDS: iohexol 350 mg/mL 500 mL Btl (per mL) IV (19:03)
[2023-08-25 19:13] VITALS: RESP 16
[2023-08-25] MEDS: morphine 4 mg/mL SDV 1 mL IVP (19:13)
[2023-08-25] MEDS: ondansetron 2 mg/ML SDV 2 mL 4 MG IVP (19:14)
--- NOTE | 2023-08-26 09:22 | PC.SOCIAL ---
Referral to Dr. Davenport at this time. Clinic to contact patient with appt date/time.
== END 2023-08-25 20:27 | disposition home or self-care (01) ==
PROVIDERS: Physician Assistant; Emergency Provider Emergency Medicine; PCP Nurse Practitioner Family
DX: D25.9 Leiomyoma of uterus, unspecified (principal); F17.210 Nicotine dependence, cigarettes, uncomplicated
CPT/HCPCS: 36415; 74177; 80053; 81003; 84703; 85025; 96374; 96375; 99285; J2270; J2405; Q9967

== ENCOUNTER → 2023-11-03 15:13 | Outpatient (BNVA) | payer OTHER, SELFPAY | PROVIDERS: PCP Nurse Practitioner Family; Visit Provider Obstetrics & Gynecology | DX: N85.9 Noninflammatory disorder of uterus, unspecified (principal) | CPT/HCPCS: 76830 ==

== ENCOUNTER → 2023-11-10 17:01 | Outpatient (BNVA) | payer OTHER, SELFPAY | PROVIDERS: PCP Nurse Practitioner Family; Visit Provider Obstetrics & Gynecology | DX: Z01.419 Encounter for gynecological examination (general) (routine) without abnormal findings (principal) | CPT/HCPCS: 87624 ==

== ENCOUNTER → 2024-01-26 15:16 | Outpatient (BNVA) | payer OTHER, SELFPAY | PROVIDERS: PCP Nurse Practitioner Family; Visit Provider Obstetrics & Gynecology | DX: R93.89 Abnormal findings on diagnostic imaging of other specified body structures (principal) | CPT/HCPCS: 76830 ==

== ENCOUNTER → 2024-08-09 15:34 | Outpatient (BNVA) | payer OTHER, SELFPAY | PROVIDERS: PCP Nurse Practitioner Family; Visit Provider Obstetrics & Gynecology | DX: D25.9 Leiomyoma of uterus, unspecified (principal); N83.292 Other ovarian cyst, left side | CPT/HCPCS: 76830 ==